=== PATIENT | female | born 1970 | race Caucasian/White ===

== ENCOUNTER 2017-11-30 11:29 | Outpatient (CLI) | payer MEDICAID ==
[~2017-11-30 11:29] MED LIST: APIX5TAB PO; DIVA500T PO; FLUO20CA12 PO; FURO20TA PO; LEVO.15 PO; LISI-519 PO; METO1TAB42 PO; RISP2TAB37 PO; RISP3 PO; VITA500012 PO
--- NOTE | 2017-11-30 12:13 | GIPROC ---
[facility] [address] [facility]. [facility], [address] EGD PROCEDURE REPORT EXAM DATE: 11/30/2017 PATIENT NAME: Mary Kate Zamora MR #: [id number] BIRTHDATE: 1970 ATTENDING: Sang Sheth MD ORDER #: [id number] CLINICAL CODER: Eduardo Otto and Priscila Mcdaniels STATUS: outpatient INDICATIONS: The patient is a 47 yr old female here for an EGD due to iron deficiency anemia and dysphagia PROCEDURE PERFORMED: EGD w/ biopsy MEDICATIONS: None and Per Anesthesia. TOPICAL ANESTHETIC: CONSENT: The patient understands the risks and benefits of the procedure and understands that these risks include, but are not limited to: sedation, allergic reaction, infection, perforation and/or bleeding. Alternative means of evaluation and treatment include, among others: physical exam, x-rays, and/or surgical intervention. The patient elects to proceed with this endoscopic procedure. medical equipment was checked for proper function. Hand hygiene and appropriate measures for infection prevention was taken. After the risks, benefits and alternatives of the procedure were thoroughly explained, Informed consent was verified, confirmed and timeout was successfully executed by the treatment team. The patient was anesthetized with topical anesthesia and the EC-3490Li (Pedi C) endoscope was introduced through the mouth and advanced to the second portion of the duodenum. Retroflexed views revealed no abnormalities The gastroscope was then slowly withdrawn and removed. ESOPHAGUS: There was LA Class B esophagitis noted. A biopsy was performed using cold forceps. Sample sent for histology. STOMACH: There was erythematous moderate gastritis in the gastric antrum. A biopsy was performed using cold forceps. Sample sent for histology. DUODENUM: The duodenal mucosa appeared normal in the bulb and second portion of the duodenum. ADVERSE EVENTS: There were no complications. IMPRESSIONS: 1. There was LA Class B esophagitis noted; biopsy was performed 2. There was erythematous gastritis in the gastric antrum; biopsy was performed 3. Normal duodenal mucosa in the bulb and second portion of the duodenum 4. Retroflexed views revealed no abnormalities RECOMMENDATIONS: 1. Await biopsy results. Biopsy results will not be ready for 7-10 days. If you don't hear from us in two weeks, call our office for biopsy results. 2. Anti-reflux regimen 3. Continue PPI PATIENT CONDITION: stable DISPOSITION: Inpatient REPEAT EXAM: Return 1 year EGD pending biopsy results Sang Sheth MD eSigned: Sang Sheth MD 11/30/2017 12:12 PM cc: PATIENT NAME: Mary Kate Zamora MR#: [id number]
--- NOTE | 2017-11-30 12:14 | GIPROC ---
[facility] [address] [facility]. [facility], [address] COLONOSCOPY PROCEDURE REPORT EXAM DATE: 11/30/2017 PATIENT NAME: Mary Kate Zamora MR #: [id number] BIRTHDATE: 1970 ENDOSCOPIST: Sang Sheth MD ORDER #: [id number] AGRICULTURE SCIENTIST: Eduardo Otto and Priscila Mcdaniels STATUS: outpatient INDICATIONS: The patient is a 47 yr old female here for a colonoscopy due to iron deficiency anemia PROCEDURE PERFORMED: Colonoscopy, diagnostic MEDICATIONS: None and Per Anesthesia. PREP QUALITY: The Bergland Bowel Prep Score was Right colon 2, Mid colon 3, and Left colon 3. Total = 8. PREP TYPE:GoLytely ESTIMATED BLOOD LOSS: None CONSENT: The patient understands the risks and benefits of the procedure and understands that these risks include, but are not limited to: sedation, allergic reaction, infection, perforation and/or bleeding. Alternative means of evaluation and treatment include, among others: physical exam, x-rays, and/or surgical intervention. The patient elects to proceed with this endoscopic procedure. medical equipment was checked for proper function. Hand hygiene and appropriate measures for infection prevention was taken. After the risks, benefits and alternatives of the procedure were thoroughly explained, Informed consent was verified, confirmed and timeout was successfully executed by the treatment team. A digital exam revealed external hemorrhoids The Pentax EC-3490Li endoscope was introduced through the anus and advanced to the terminal ileum which was intubated for a short distance. The instrument was then slowly withdrawn as the colon was fully examined. COLON FINDINGS: The colonic mucosa appeared normal. Retroflexed views revealed internal hemorrhoids and Retroflexed views revealed small internal hemorrhoids The scope was then completely withdrawn from the patient and the procedure terminated. ADVERSE EVENTS: There were no complications. IMPRESSIONS: 1. The colonic mucosa appeared normal 2. Retroflexed views revealed internal hemorrhoids 3. Retroflexed views revealed small internal hemorrhoids 4. Revealed external hemorrhoids RECOMMENDATIONS: 1. Continue surveillance 2. Yearly hemoccult RECALL: Return 10 years Colonoscopy Sang Sheth MD eSigned: Sang Sheth MD 11/30/2017 12:14 PM cc:
[2017-11-30 12:19] VITALS: TEMP 97.5
[2017-11-30 12:36] VITALS: BP 130/69; PULSE 63; RESP 18; O2SAT 99
[2017-11-30] MEDS ORDERED: ZINC OXIDE 40% OINT 60 GM TUBE TOPICAL PRN (13:30)
== END 2017-11-30 12:54 ==
LOC: HEND 11:29 → MERGE 11:29 → HEND 12:54
PROVIDERS: ATTEND Internal Medicine Gastroenterology
DX: D64.9 Anemia, unspecified (principal); K29.50 Unspecified chronic gastritis without bleeding; K64.4 Residual hemorrhoidal skin tags; K64.8 Other hemorrhoids; R19.8 Other specified symptoms and signs involving the digestive system and abdomen; I10 Essential (primary) hypertension; I25.10 Atherosclerotic heart disease of native coronary artery without angina pectoris
CPT/HCPCS: 88305; 88312

== ENCOUNTER 2017-11-30 12:48 | Inpatient (IN) | payer MEDICAID ==
--- NOTE | 2017-11-30 13:31 | HHI.PR ---
Subjective Remarks s/p EGD. comfortable with no distress. denies abdominal pain, nausea or vomiting. Objective Objective Remarks GENERAL: This is a well-nourished, well-developed patient, in no apparent distress. CARDIOVASCULAR: Regular rate and regular rhythm without murmurs, gallops, or rubs. RESPIRATORY: Clear to auscultation. Breath sounds equal bilaterally. No wheezes , rales, or rhonchi. GASTROINTESTINAL: Abdomen soft, non-tender, nondistended. Normal, active bowel sounds MUSCULOSKELETAL: Extremities without clubbing, cyanosis, or edema. NEURO: Alert & Oriented x4 to person, place, time, situation. Moves all ext x4 Procedures EGD/ colonoscopy A/P Assessment and Plan A/P - depression/ suicidal thoughts- management per psych. -CAD/endocarditis- s/p aortic valve repair; continue eliquis- verify the dosage of metoprolol and lisinopril and resume when verified. -anemia- due to iron deficiency- patient is on anticoagulation ( Hb; 12.5 ---> 10.5 since last month); monitor H/H- GI consulted and s/p EGD with esophagitis and gastritis and colonoscopy with internal and external hemorrhoids. -hypothyroidism; resume home meds Nelda Nguyen MD Nov 30, 2017 13:31
[2017-11-30] MEDS ORDERED: diphenhydrAMINE HCL 50 MG/ML VIAL IM PRN (14:45)
[2017-11-30] MEDS ORDERED: NICOTINE 21 MG/24 HR PATCH T-DERMAL PRN (14:45)
[2017-11-30] MEDS ORDERED: ALUMINUM/MAGNESIUM/SIMETH 30 ML CUP PO PRN (14:45)
[2017-11-30] MEDS ORDERED: MAGNESIUM HYDROXIDE SUSP 30 ML CUP PO PRN (14:45)
--- NOTE | 2017-11-30 14:54 | HHI.PYPN ---
Subjective Remarks Patient returning from GI procedure under new V number. See my H&P dated 11/29. Patient seen and examined. Chart reviewed. Case discussed with nursing staff. On my examination today, patient is awake and alert. She appears to be in no acute distress. She reports mild, improving deprecatory AH. No CAH. Denies SI/HI. She is in good spirits. She says that her plan is now to go stay with daughter. I noted in nursing notes that daughter was requesting a call, and I have asked patient to complete JD with nurse. Denies side effects from medications. Complains of some mild abdominal pain but otherwise has no physical complaints. Review of Systems Except as stated in HPI: all other systems reviewed are Neg Mental Status Examination Appearance: Other (in hospital attire. Well groomed.) Consciousness: Alert Orientation: x4 Motor Activity: Normal gait, Other (no motor abnormalities noted) Speech: Unremarkable Language: Adequate Fund of Knowledge: Adequate Attention and Concentration: Adequate Memory: Unremarkable Mood: Appropriate Affect: Appropriate Thought Process & Associations: Intact Thought Content: Appropriate Hallucination Type: Auditory (deprecatory) Delusion Type: None Suicidal Ideation: No Suicidal Plan: No Suicidal Intention: No Homicidal Ideation: No Homicidal Plan: No Homicidal Intention: No Insight: Fair Judgment: Adequate (fair) Results Labs Item Value Date Time Hemoglobin 11.2 GM/DL L 11/30/17 1100 Hematocrit 34.3 % L 11/30/17 1100 Iron Level 18 MCG/DL L 11/29/17 0943 Total Iron Binding Capacity 494 MCG/DL H 11/29/17 0943 Percent Iron Saturation 3.6 % L 11/29/17 0943 Ferritin 5 NG/ML L 11/29/17 0943 Thyroid Stimulating Hormone 3rd Gen 1.580 uIU/ML 11/29/17 0943 Vitals/IOs Vital Signs Label Value Date Time Patient Temperature 97.5 degrees F L 11/30/17 1219 Temperature Source Oral 11/30/17 1219 Pulse 63 11/30/17 1236 Respiratory Rate 18 bpm 11/30/17 1236 Blood Pressure Assessment 130/69 (89) 11/30/17 1236 Location R Arm Source Automatic Cuff Bedside Pulse Oximetry 99 % 11/30/17 1236 Assessment & Plan Problem List: (1) Schizoaffective disorder, bipolar type ICD Codes: F25.0 - Schizoaffective disorder, bipolar type Assessment & Plan Continue Risperdal 2mg qAM and 3mg qHS as ordered. Patient remains agreeable to CERRATO, and we could consider initiating such an agent tomorrow. Continue Depakote and Prozac as ordered. Plan to check Depakote and ammonia level over the weekend (inpatient or outpatient if discharged by that time). Hospitalist and GI input appreciated; defer to them for somatic complaints. Continue to monitor on the inpatient unit. Continue other medications and care as ordered. Call to daughter once JD has been obtained. Justification for Cont. Inpt. Planned medication changes. Resolving impairment in reality construction. Discharge Planning Pending stabilization Request HC Surrog/Guard Advoc?: No Missael Mart MD Nov 30, 2017 14:54
[2017-11-30 15:15] VITALS: BP 162/67; PULSE 75; RESP 18; TEMP 98; O2SAT 98
[2017-11-30 18:00] VITALS: BP 122/63; PULSE 78; RESP 18; TEMP 98.2; O2SAT 92
[2017-11-30 19:00] VITALS: BP 149/68; PULSE 75; RESP 18; TEMP 98.2
[2017-11-30] MEDS: ACETAMINOPHEN 325 MG TAB PO PRN (19:19)
[2017-11-30 20:20] VITALS: BP 146/70; PULSE 72; RESP 18
--- NOTE | 2017-11-30 20:40 | RADRPT ---
EXAM DATE/TIME: 11/30/2017 20:01 [facility] COMPARISON: No previous studies available for comparison. INDICATIONS : Sacral pain after fall. MEDICAL HISTORY : None. SURGICAL HISTORY : None. ENCOUNTER: Initial ACUITY: 1 day PAIN SCORE: 10/10 LOCATION: Bilateral buttock FINDINGS: Two-view examination of the sacrum and coccyx demonstrates no evidence of fracture or malalignment. The sacral ala and foramina appear symmetric and intact. The coccyx appears unremarkable. The preve rtebral soft tissues are within normal limits. CONCLUSION: 1. No acute findings. Tommy Harrington MD on November 30, 2017 at 20:38 Board Certified Radiologist. This report was verified electronically.
--- NOTE | 2017-11-30 20:40 | RADRPT ---
EXAM DATE/TIME: 11/30/2017 20:01 [facility] COMPARISON: No previous studies available for comparison. INDICATIONS : Lower back pain after fall. MEDICAL HISTORY : None. SURGICAL HISTORY : None. ENCOUNTER: Initial ACUITY: 1 day PAIN SCORE: 10/10 LOCATION: Bilateral lower back. FINDINGS: Two view examination was performed. There are five non-rib bearing vertebral bodies. The vertebral bodies are in normal alignment without evidence of subluxation or scoliosis. The disc spaces are bert ntained. The pedicles are intact. Bony mineralization is normal. No fracture is identified. CONCLUSION: 1. No acute findings. Minimal scoliosis. Grade 1 anterolisthesis at the lumbosacral junction. Tommy Harrington MD on November 30, 2017 at 20:36 Board Certified Radiologist. This report was verified electronically.
[2017-11-30] MEDS: risperiDONE 3 MG TAB PO SCH (20:50)
[2017-11-30] MEDS: DIVALPROEX DR 500 MG TABEC PO SCH (20:50)
[2017-11-30] MEDS: REMOVE OLD NICODERM (NICOTINE) PATCH T-DERMAL SCH (20:50)
[2017-11-30 21:30] VITALS: BP 133/62; PULSE 72; RESP 16; TEMP 97.9
[2017-11-30 22:44] VITALS: BP 132/60; PULSE 67; RESP 16; TEMP 98
[2017-12-01 02:35] VITALS: BP 125/60; PULSE 69; RESP 17; TEMP 98; O2SAT 95
[2017-12-01 05:28] VITALS: BP 123/58; PULSE 62; RESP 18; TEMP 98.3
[2017-12-01] MEDS: LEVOTHYROXINE SODIUM 150 MCG TAB PO SCH (06:00)
[2017-12-01] MEDS: FLUoxetine HCL 20 MG CAP PO SCH (09:00)
[2017-12-01] MEDS: PANTOPRAZOLE SOD 40 MG DELAYED RELEASE TAB PO SCH (09:00)
[2017-12-01] MEDS: risperiDONE 1 MG TAB PO SCH (09:00)
[2017-12-01] MEDS: DIVALPROEX DR 500 MG TABEC PO SCH ×2 (09:00→21:44)
--- NOTE | 2017-12-01 12:05 | HHI.PYPN ---
Subjective Remarks Patient seen and examined with nurse. Chart reviewed. Case discussed with nursing staff. I was apprised by the night nurse of patient's behaviors overnight as I was the MD public information director. Nurse overnight reported to me that patient reported 2 'falls' although it was not suspected that she had really fallen but rather that she had been feigning falls. I ordered patient placed on a 1:1 to try to minimize this behavior, and nurse reported to me that sitter observed patient lower herself to floor and subsequently claim yet another 'fall.' On my exam today, patient initially purports to have no recollection of behavior overnight but then seems to agree that it is in keeping with acting out behavior described by daughter. She denies SI/HI. Denies AVH. She is fairly childlike. Denies side effects from medications. Declines long-acting injectable. No physical complaints. Review of Systems ROS Limitations: Poor Historian Except as stated in HPI: all other systems reviewed are Neg Mental Status Examination Appearance: Well dressed/well groomed Consciousness: Alert Orientation: x4 Motor Activity: Normal gait, Other (no abnormal motor movements noted) Speech: Unremarkable Language: Adequate Fund of Knowledge: Adequate Attention and Concentration: Adequate Memory: Unremarkable Mood: Appropriate Affect: Other (childlike) Thought Process & Associations: Intact Thought Content: Appropriate Hallucination Type: None Delusion Type: None Suicidal Ideation: No Suicidal Plan: No Suicidal Intention: No Homicidal Ideation: No Homicidal Plan: No Homicidal Intention: No Insight: Fair Judgment: Adequate (fair at best) Results Labs Labs reviewed. No new labs. Last Impressions Sacrum and Coccyx X-Ray 11/30/17 0000 Signed Impressions: Service Date/Time: Thursday, November 30, 2017 20:01 - CONCLUSION: 1. No acute findings. Tommy Harrington MD Lumbar Spine X-Ray 11/30/17 0000 Signed Impressions: Service Date/Time: Thursday, November 30, 2017 20:01 - CONCLUSION: 1. No acute findings. Minimal scoliosis. Grade 1 anterolisthesis at the lumbosacral junction. Tommy Harrington MD Vitals/IOs Vital Signs Date Time Temp Pulse Resp B/P (MAP) Pulse Ox O2 Delivery O2 Flow Rate FiO2 12/01/17 05:28 98.3 62 18 123/58 (79) 12/01/17 02:35 95 Assessment & Plan Problem List: (1) Schizoaffective disorder, bipolar type ICD Codes: F25.0 - Schizoaffective disorder, bipolar type Assessment & Plan Continue current psychotropics as ordered. Patient declines medication change today. I will continue one-to-one to try to prevent acting out by feigning falls. Hospitalist input appreciated. Continue to monitor on the inpatient unit. Continue other medications and care as ordered. Justification for Cont. Inpt. Risk for decompensation in less restrictive environment. Discharge Planning Pending stabilization Request HC Surrog/Guard Advoc?: No Missael Mart MD Dec 01, 2017 12:05
--- NOTE | 2017-12-01 14:39 | HHI.GIFU ---
Subjective Remarks Pt stood up when I entered room, in no apparent distress. She states she wants to go home. Denies any GI complaints at this time, had a BM today, states normal. Objective Vitals I&O Vital Signs Date Time Temp Pulse Resp B/P (MAP) Pulse Ox O2 Delivery O2 Flow Rate FiO2 12/01/17 05:28 98.3 62 18 123/58 (79) 12/01/17 02:35 98.0 69 17 125/60 (81) 95 11/30/17 22:44 98.0 67 16 132/60 (84) 11/30/17 21:30 97.9 72 16 133/62 (85) 11/30/17 20:20 72 18 146/70 (95) 11/30/17 19:00 98.2 75 18 149/68 (95) 11/30/17 18:00 98.2 78 18 122/63 (82) 92 11/30/17 15:15 98.0 75 18 162/67 (98) 98 I/O 11/30/17 11/30/17 11/30/17 12/01/17 12/01/17 12/01/17 07:00 15:00 23:00 07:00 15:00 23:00 Intake Total 240 ml Balance 240 ml Intake Oral 240 ml Imaging Last Impressions Sacrum and Coccyx X-Ray 11/30/17 0000 Signed Impressions: Service Date/Time: Thursday, November 30, 2017 20:01 - CONCLUSION: 1. No acute findings. Tommy Harrington MD Lumbar Spine X-Ray 11/30/17 0000 Signed Impressions: Service Date/Time: Thursday, November 30, 2017 20:01 - CONCLUSION: 1. No acute findings. Minimal scoliosis. Grade 1 anterolisthesis at the lumbosacral junction. Tommy Harrington MD Physical Exam HEENT: Normocephalic; atraumatic CHEST: Even/unlabored ABDOMEN: Soft, nondistended, nontender; bowel sounds active EXTREMITIES: No clubbing, cyanosis, or edema. SKIN: Normal; no rash; no jaundice. SUBSTATION TECHNICIAN: No focal deficits; alert and oriented times three. Assessment and Plan Plan - Anemia, microcytic, hypochromic. Iron-18 TIBC-494 % sat-3.6 Ferritin-5. Pt reports history of iron deficiency anemia, stopped taking the iron supplements because they caused constipation. No obvious GIB. GI symptoms include constipation and acid reflux, takes medication for acid reflux at home, but she is unsure of the name. Denies ever having EGD. Last colonoscopy 3 years ago, states normal exam. Denies NSAIDS. ETOH and smokes when she can afford it. Of note, attending planning on continuing Eliquis that pt is on S/P aortic valve replacement three years ago, will hold until after procedures tomorrow (12/01) S/P EGD and colonoscopy yesterday. Findings: Colon- mucosa appeared normal, internal hemorrhoids, external hemorrhoids. Recommendations for repeat exam in 10 years. EGD--> Class A esophagitis, erythematous gastritis, normal duodenum. Recommendations for PPI and repeat exam in one year. H/H currently stable 11.2/34.3. GI will sign off, please reconsult as needed. DC home with Protonix. May restart Eliquis from GI standpoint. Pt has been seen and examined by myself and Dr. Bridges and this note is written on his behalf Oneyda Thurston Dec 01, 2017 14:39
--- NOTE | 2017-12-01 17:25 | HHI.PR ---
Subjective Remarks Follow up for anemia, esophagitis/gastritis, hemorrhoids. The patient is s/p EGD /colonoscopy yesterday 11/30 showing esophagitis, erythematous gastritis, internal/external hemorrhoids. She reports some irritation at the rectum with bowel movement but denies any hematochezia/melena. Denies any abdominal pain, nausea, or vomiting. She is tolerating oral intake. RN reports patient with behavior issues overnight, reportedly intentionally throwing herself on the floor after not receiving pain medications. The patient denies any musculoskeletal complaints following the fall. The patient is now with 1 to 1 sitter, resting in bed, no acute issues. The patient has no other medical complaints at this time. Objective Vitals Vital Signs Date Time Temp Pulse Resp B/P (MAP) Pulse Ox O2 Delivery O2 Flow Rate FiO2 12/01/17 05:28 98.3 62 18 123/58 (79) 12/01/17 02:35 98.0 69 17 125/60 (81) 95 11/30/17 22:44 98.0 67 16 132/60 (84) 11/30/17 21:30 97.9 72 16 133/62 (85) 11/30/17 20:20 72 18 146/70 (95) 11/30/17 19:00 98.2 75 18 149/68 (95) 11/30/17 18:00 98.2 78 18 122/63 (82) 92 I/O 11/30/17 11/30/17 11/30/17 12/01/17 12/01/17 12/01/17 07:00 15:00 23:00 07:00 15:00 23:00 Intake Total 240 ml Balance 240 ml Intake Oral 240 ml Imaging Last Impressions Sacrum and Coccyx X-Ray 11/30/17 0000 Signed Impressions: Service Date/Time: Thursday, November 30, 2017 20:01 - CONCLUSION: 1. No acute findings. Tommy Harrington MD Lumbar Spine X-Ray 11/30/17 0000 Signed Impressions: Service Date/Time: Thursday, November 30, 2017 20:01 - CONCLUSION: 1. No acute findings. Minimal scoliosis. Grade 1 anterolisthesis at the lumbosacral junction. Tommy Harrington MD Objective Remarks GENERAL: Well-nourished, well-developed middle aged female patient in NAD. Resting in bed. Seen with sitter at bedside. SKIN: Warm and dry. No rash. HEENT: Normocephalic. Atraumatic.Pupils equal and round. Mucous membranes pink and moist. NECK: Supple. Trachea midline. CARDIOVASCULAR: Regular rate and rhythm. S1, S2 noted. Loud mechanical murmur noted. RESPIRATORY: No accessory muscle use. Clear to auscultation. Breath sounds equal bilaterally. GASTROINTESTINAL: Abdomen soft, non-tender, nondistended. Normoactive bowel sounds x4. MUSCULOSKELETAL: No obvious deformities. Extremities without clubbing, cyanosis , or edema. NEUROLOGICAL: Awake and alert. No obvious cranial nerve deficits. Motor grossly within normal limits. Normal speech. Procedures EGD/colonoscopy 11/30 showing esophagitis, erythematous gastritis, internal/ external hemorrhoids. Medications and IVs Current Medications Medications (Trade) Dose Ordered Sig/Sean Route Start Time Stop Time Status Last Admin (Protonix) 40 mg DAILY PO 12/01/17 09:00 12/01/17 09:00 (Benadryl) 50 mg Q6H PRN PO 11/30/17 14:45 (Benadryl Inj) 50 mg Q6H PRN IM 11/30/17 14:45 (Tylenol) 650 mg Q4H PRN PO 11/30/17 14:45 11/30/17 19:19 (Milk Of Magnesia Liq) 30 ml DAILY PRN PO 11/30/17 14:45 (Mag-Al Plus Susp Liq) 30 ml Q6H PRN PO 11/30/17 14:45 (Habitrol 21 Mg Patch.24 Hr) 1 patch DAILY PRN T-DERMAL 11/30/17 14:45 (risperDAL) 2 mg DAILY PO 12/01/17 09:00 12/01/17 09:00 (risperDAL) 3 mg HS PO 11/30/17 21:00 11/30/17 20:50 (Depakote Dr) 500 mg BID PO 11/30/17 21:00 12/01/17 09:00 (PROzac) 20 mg DAILY PO 12/01/17 09:00 12/01/17 09:00 (Synthroid) 150 mcg DAILY@0600 PO 12/01/17 06:00 12/01/17 06:00 Miscellaneous Information 1 HS T-DERMAL 11/30/17 21:00 (Desitin 40% Oint) 1 applic UNSCH PRN TOPICAL 11/30/17 15:15 A/P Problem List: (1) History of aortic valve repair ICD Code: Z98.890 - Other specified postprocedural states; Z86.79 - Personal history of other diseases of the circulatory system (2) Schizoaffective disorder, bipolar type ICD Code: F25.0 - Schizoaffective disorder, bipolar type Assessment and Plan 47-year-old female with history of iron deficiency anemia, endocarditis s/p aortic valve repair, hypothyroidism, bipolar disorder, schizophrenia, PTSD, admitted to inpatient psych voluntarily due to auditory hallucinations and noncompliance with psychiatric medications. Medical team consulted for anemia and medical management. Hallucinations/depression/suicidal ideations -continue management per psychiatry CAD/Endocarditis s/p aortic valve repair: At this time, patient reporting mechanical valve however reportedly only on Eliquis? which is not approved for anticoagulation with mechanical valves. Discussed with radiologist, unable to differentiate type of valve on CXR. - Obtain records MARYBEL - start on full strength Lovenox injections until verified type of valve - start home meds when med rec updated Iron Deficiency Anemia: patient is also on anticoagulation ( Hb; 12.5 ---> 10.5 since last month) -GI consulted, s/p EGD 11/30 with esophagitis/gastritis and colonoscopy with internal and external hemorrhoids. -Recommended PPI -patient tolerating oral intake Hypothyroidism: chronic - resume home meds once updated DVT Prophylaxis: Lovenox sq Ruby Hubbard PA-C Dec 01, 2017 5:25 pm
[2017-12-01] MEDS: diphenhydrAMINE HCL 50 MG CAP PO PRN (18:03)
[2017-12-01 18:39] VITALS: BP 122/67; PULSE 76; RESP 16; TEMP 97.9; O2SAT 98
[2017-12-01] MEDS: REMOVE OLD NICODERM (NICOTINE) PATCH T-DERMAL SCH (21:00)
[2017-12-01] MEDS: risperiDONE 3 MG TAB PO SCH (21:44)
[2017-12-01] MEDS: ZINC OXIDE 40% OINT 60 GM TUBE TOPICAL PRN (22:22)
[2017-12-01] MEDS: ENOXAPARIN SODIUM 80 MG/0.8 ML SYRINGE SQ SCH (22:24)
[2017-12-01] MEDS: ACETAMINOPHEN 325 MG TAB PO PRN (22:39)
[2017-12-02] MEDS: ENOXAPARIN SODIUM 80 MG/0.8 ML SYRINGE SQ SCH (05:19)
[2017-12-02 06:09] VITALS: BP 101/58; PULSE 60; RESP 16; TEMP 97.3; O2SAT 96
[2017-12-02] MEDS: LEVOTHYROXINE SODIUM 150 MCG TAB PO SCH (06:33)
[2017-12-02] MEDS: DIVALPROEX DR 500 MG TABEC PO SCH ×3 (09:00→21:16)
[2017-12-02] MEDS: risperiDONE 1 MG TAB PO SCH (09:15)
[2017-12-02] MEDS: PANTOPRAZOLE SOD 40 MG DELAYED RELEASE TAB PO SCH (09:15)
[2017-12-02] MEDS: FLUoxetine HCL 20 MG CAP PO SCH (09:15)
[2017-12-02] MEDS: ENOXAPARIN SODIUM 100 MG/ML SYRINGE SQ SCH ×2 (11:00→17:54)
--- NOTE | 2017-12-02 11:05 | HHI.PYPN ---
Subjective Remarks Patient seen and examined with nurse. Chart reviewed. Case discussed with nursing staff. No behavioral issues noted overnight. No further purposeful falls. Case discussed in treatment team, and occupational therapist notes that the patient has been behaving fairly appropriately in groups. Patient remains on one-to-one due to purposeful falls night before last. On my exam, patient remains somewhat childlike. She is requesting discharge from the hospital today. I discuss that we first need to de-escalate her level of obs without evidence of behavioral disturbance before discharge could be considered, at least through the weekend; she expresses understanding. She denies any SI/HI or AVH today. Denies side effects from medications. No physical complaints. I have recommended CERRATO antipsychotic again today, but patient refuses this. Review of Systems ROS Limitations: Poor Historian Except as stated in HPI: all other systems reviewed are Neg Mental Status Examination Appearance: Well dressed/well groomed Consciousness: Alert Orientation: x4 Motor Activity: Normal gait, Other (no motoric abnormalities noted) Speech: Unremarkable Language: Adequate Fund of Knowledge: Adequate Attention and Concentration: Adequate Memory: Unremarkable Mood: Appropriate Affect: Other (remains a little childlike) Thought Process & Associations: Intact Thought Content: Appropriate Hallucination Type: None Delusion Type: None Suicidal Ideation: No Suicidal Plan: No Suicidal Intention: No Homicidal Ideation: No Homicidal Plan: No Homicidal Intention: No Insight: Fair Judgment: Adequate (fair at best) Results Labs Labs reviewed. Echocardiogram results reviewed. Vitals/IOs Vital Signs Date Time Temp Pulse Resp B/P (MAP) Pulse Ox O2 Delivery O2 Flow Rate FiO2 12/02/17 06:09 97.3 60 16 101/58 (72) 96 Assessment & Plan Problem List: (1) Schizoaffective disorder, bipolar type ICD Codes: F25.0 - Schizoaffective disorder, bipolar type Assessment & Plan Continue Risperdal, Depakote and Prozac as ordered. Patient is declining long- acting injectable antipsychotic. Plan to check a Depakote and ammonia level Tuesday morning. Discontinue one-to-one level of observation and monitor on the inpatient unit. Vrt Mechanic input noted and appreciated. Continue other medications and care as ordered. Justification for Cont. Inpt. Monitoring for impairment in safety. Risk for decompensation in less restrictive environment. Discharge Planning Possible Tuesday discharge so long as patient remains in behavioral control over the weekend. Request HC Surrog/Guard Advoc?: No Missael Mart MD Dec 02, 2017 11:05
--- NOTE | 2017-12-02 13:43 | HHI.PR ---
Subjective Remarks Follow-up anticoagulation. Patient not a good historian. Reports she underwent 3 valve surgeries in [facility] in [place] 2 years ago and was discharged without anticoagulation. She is not certain if she underwent valve replacement or repair. In spring, she underwent cardiac catheterization because of arrhythmia and [facility] and was placed on Eliquis since then. Doesn't recall being on Coumadin with PT/INR monitoring. Objective Vitals Vital Signs Date Time Temp Pulse Resp B/P (MAP) Pulse Ox O2 Delivery O2 Flow Rate FiO2 12/02/17 06:09 97.3 60 16 101/58 (72) 96 12/01/17 18:39 97.9 76 16 122/67 (85) 98 I/O 12/01/17 12/01/17 12/01/17 12/02/17 12/02/17 12/02/17 07:00 15:00 23:00 07:00 15:00 23:00 Intake Total 240 ml 240 ml Balance 240 ml 240 ml Intake Oral 240 ml 240 ml Imaging Last Impressions Sacrum and Coccyx X-Ray 11/30/17 0000 Signed Impressions: Service Date/Time: Thursday, November 30, 2017 20:01 - CONCLUSION: 1. No acute findings. Tommy Harrington MD Lumbar Spine X-Ray 11/30/17 0000 Signed Impressions: Service Date/Time: Thursday, November 30, 2017 20:01 - CONCLUSION: 1. No acute findings. Minimal scoliosis. Grade 1 anterolisthesis at the lumbosacral junction. Tommy Harrington MD Objective Remarks GENERAL: Well-nourished, well-developed middle aged female patient in [facility]. Resting in bed. Seen with sitter at bedside. SKIN: Warm and dry. No rash. CARDIOVASCULAR: Regular rate and rhythm. S1, S2 noted. Loud systolic murmur noted. Metallic click RESPIRATORY: No accessory muscle use. Clear to auscultation. Breath sounds equal bilaterally. GASTROINTESTINAL: Abdomen soft, non-tender, nondistended. Normoactive bowel sounds x4. MUSCULOSKELETAL: No obvious deformities. Extremities without clubbing, cyanosis , or edema. NEUROLOGICAL: Awake and alert. No obvious cranial nerve deficits. Motor grossly within normal limits. Normal speech. Procedures EGD/colonoscopy 11/30 showing esophagitis, erythematous gastritis, internal/ external hemorrhoids. A/P Problem List: (1) History of aortic valve repair ICD Code: Z98.890 - Other specified postprocedural states; Z86.79 - Personal history of other diseases of the circulatory system (2) Schizoaffective disorder, bipolar type ICD Code: F25.0 - Schizoaffective disorder, bipolar type Assessment and Plan 47-year-old female with history of iron deficiency anemia, endocarditis s/p aortic valve repair, hypothyroidism, bipolar disorder, schizophrenia, PTSD, admitted to inpatient psych voluntarily due to auditory hallucinations and noncompliance with psychiatric medications. Medical team consulted for anemia and medical management. Hallucinations/depression/suicidal ideations -continue management per psychiatry CAD/Endocarditis s/p aortic valve repair: At this time, patient reporting mechanical valve however reportedly only on Eliquis? which is not approved for anticoagulation with mechanical valves. Discussed with radiologist, unable to differentiate type of valve on CXR. - Obtain records MARYBEL - start on full strength Lovenox injections until verified type of valve - start home meds when med rec updated Iron Deficiency Anemia: patient is also on anticoagulation ( Hb; 12.5 ---> 10.5 since last month) -GI consulted, s/p EGD 11/30 with esophagitis/gastritis and colonoscopy with internal and external hemorrhoids. -Recommended PPI -patient tolerating oral intake -add Fe Hypothyroidism: chronic - resume home meds once updated DVT Prophylaxis: Lovenox sq Nehemiah Quick MD Dec 02, 2017 13:43
--- NOTE | 2017-12-02 14:28 | ECHRPT ---
Indication: endocarditis CONCLUSIONS The left ventricular systolic function is normal with an estimated ejection fraction in the range of 60-65%. Mild mitral valve regurgitation. Mobile vegetation 0.9 x 0.8cm seen on anterior MV. Appears to have bioprosthetic AVR, gradients appear most likely normal for valve. There is mild tricuspid valve regurgitation. BP: / HR: Rhythm: MEASUREMENTS (Male / Female) Normal Values Technical Quality:Technically difficult study 2D ECHO LV Diastolic Diameter PLAX 5.7 cm 4.2 - 5.9 / 3.9 - 5.3 cm LV Systolic Diameter PLAX 3.7 cm IVS Diastolic Thickness 1.1 cm 0.6 - 1.0 / 0.6 - 0.9 cm LVPW Diastolic Thickness 1.0 cm 0.6 - 1.0 / 0.6 - 0.9 cm LV Relative Wall Thickness 0.4 RV Internal Dim ED PLAX 2.3 cm LVOT Diameter 2.2 cm M-MODE Aortic Root Diameter MM 2.6 cm LA Systolic Diameter MM 4.8 cm LA Ao Ratio MM 1.8 DOPPLER AV Peak Velocity 258.0 cm/s AV Peak Gradient 26.6 mmHg AV Mean Gradient 16.0 mmHg AV Velocity Time Integral 56.2 cm LVOT Peak Velocity 113.0 cm/s LVOT Peak Gradient 5.1 mmHg LVOT Velocity Time Integral 21.7 cm AV Area Cont Eq vti 1.5 cm AV Area Cont Eq pk 1.7 cm LV E' Lateral Velocity 11.0 cm/s LV E' Septal Velocity 8.7 cm/s TR Peak Velocity 200.0 cm/s TR Peak Gradient 16.0 mmHg Right Atrial Pressure 10.0 mmHg Pulmonary Artery Systolic Pressu 26.0 mmHg Right Ventricular Systolic Press 26.0 mmHg FINDINGS LEFT VENTRICLE Normal left ventricular size. The left ventricular systolic function is normal with an estimated ejection fraction in the range of 60-65%. RIGHT VENTRICLE Normal right ventricular size and systolic function. LEFT ATRIUM The left atrial size is mildly dilated. RIGHT ATRIUM The right atrial size is normal. ATRIAL SEPTUM Normal atrial septal thickness. AORTA The aortic root and proximal ascending aorta are normal in size on limited imaging. MITRAL VALVE Structurally normal mitral valve. Mild mitral valve regurgitation. Mobile vegetation 0.9 x 0.8cm seen on anterior MV AORTIC VALVE Appears to have bioprosthetic AVR No aortic valve regurgitation. Gradients appear most likely normal for valve TRICUSPID VALVE Structurally normal tricuspid valve. There is mild tricuspid valve regurgitation. The estimated pulmonary arterial pressure is 26 mmHg. PULMONARY VALVE No pulmonary valve regurgitation or stenosis. VESSELS The inferior vena cava is normal in size. PERICARDIUM No pericardial effusion. Sudhakar Garcia DO (Electronically Signed) Final Date:02 December 2017 14:27
--- NOTE | 2017-12-02 15:08 | PD.TTN ---
Patient Problems 1. Discharge planning 2. Medication compliance 3. Knowledge deficit 4. Lack of coping skills Progress Toward Goals Provider Present: Dr. Mariajose Mart Provider Input: Doctor discharge 1 to 1, started long acting injectable, pt childlike, meets criteria Psychiatric Counselors Present: Tay Chaparro Jr., [facility] Psych Therapist Input: none Group Spec/RT/OT/SANTILLAN Input: not attending group. Tay Chaparro Jr, PATIENT SUPPORT ASSISTANT Dec 02, 2017 15:07
[2017-12-02 18:00] VITALS: BP 138/65; PULSE 88; RESP 17; TEMP 98.1; O2SAT 100
[2017-12-02] MEDS: ZINC OXIDE 40% OINT 60 GM TUBE TOPICAL PRN (19:38)
[2017-12-02] MEDS: ACETAMINOPHEN 325 MG TAB PO PRN (19:57)
[2017-12-02] MEDS: REMOVE OLD NICODERM (NICOTINE) PATCH T-DERMAL SCH (21:00)
[2017-12-02] MEDS: diphenhydrAMINE HCL 50 MG CAP PO PRN (21:16)
[2017-12-02] MEDS: risperiDONE 3 MG TAB PO SCH (21:16)
[2017-12-02 21:50] VITALS: BP 137/59; PULSE 59; RESP 16; TEMP 98.1; O2SAT 99
[2017-12-03 05:40] VITALS: BP 137/59; PULSE 59; RESP 16; TEMP 98.1; O2SAT 99
[2017-12-03] MEDS: LEVOTHYROXINE SODIUM 150 MCG TAB PO SCH (05:52)
[2017-12-03] MEDS: FLUoxetine HCL 20 MG CAP PO SCH (08:45)
[2017-12-03] MEDS: DIVALPROEX DR 500 MG TABEC PO SCH ×2 (08:45→21:12)
[2017-12-03] MEDS: risperiDONE 1 MG TAB PO SCH (08:45)
[2017-12-03] MEDS: APIXABAN 5 MG TABLET PO SCH ×2 (08:46→21:12)
[2017-12-03] MEDS: FERROUS SULFATE 325 MG (65 MG ELEMENTAL IRON) TAB PO SCH (08:46)
[2017-12-03] MEDS: PANTOPRAZOLE SOD 40 MG DELAYED RELEASE TAB PO SCH (08:46)
--- NOTE | 2017-12-03 11:29 | HHI.PYPN ---
Subjective Remarks Pt seen and discussed with staff. She has been compliant with treatment and medications. No medication side effects. RN states that pt initially refused to be on CERRATO but is now contemplating it. She is denying SI today. No falls or agitation. Mental Status Examination Appearance: Well dressed/well groomed Consciousness: Alert Orientation: x4 Motor Activity: Normal gait, Other (no motoric abnormalities noted) Speech: Unremarkable Language: Adequate Fund of Knowledge: Adequate Attention and Concentration: Adequate Memory: Unremarkable Mood: Appropriate Affect: Other (remains a little childlike) Thought Process & Associations: Intact Thought Content: Appropriate Hallucination Type: None Delusion Type: None Suicidal Ideation: No Suicidal Plan: No Suicidal Intention: No Homicidal Ideation: No Homicidal Plan: No Homicidal Intention: No Insight: Fair Judgment: Adequate (fair at best) Results Vitals/IOs Vital Signs Date Time Temp Pulse Resp B/P (MAP) Pulse Ox O2 Delivery O2 Flow Rate FiO2 12/03/17 05:40 98.1 59 16 137/59 (85) 99 Assessment & Plan Problem List: (1) Schizoaffective disorder, bipolar type ICD Codes: F25.0 - Schizoaffective disorder, bipolar type Assessment & Plan Continue current tx plan Estimated LOS: days Justification for Cont. Inpt. risk of decompensation Request HC Surrog/Guard Advoc?: Lena Thomas MD Dec 03, 2017 11:29
--- NOTE | 2017-12-03 13:07 | HHI.PR ---
Subjective Remarks Follow-up anticoagulation. Tolerating Lovenox. Echocardiogram results discussed with the patient she has bioprosthetic aortic valve and does not need anticoagulation. She is on Eliquis for arrhythmia dw RN Objective Vitals Vital Signs Date Time Temp Pulse Resp B/P (MAP) Pulse Ox O2 Delivery O2 Flow Rate FiO2 12/03/17 05:40 98.1 59 16 137/59 (85) 99 12/02/17 21:50 98.1 59 16 137/59 (85) 99 12/02/17 18:00 98.1 88 17 138/65 (89) 100 Objective Remarks GENERAL: Well-nourished, well-developed middle aged female patient in [facility]. Resting in bed. Seen with sitter at bedside. SKIN: Warm and dry. No rash. CARDIOVASCULAR: Regular rate and rhythm. S1, S2 noted. Loud systolic murmur noted. RESPIRATORY: No accessory muscle use. Clear to auscultation. Breath sounds equal bilaterally. GASTROINTESTINAL: Abdomen soft, non-tender, nondistended. Normoactive bowel sounds x4. MUSCULOSKELETAL: No obvious deformities. Extremities without clubbing, cyanosis , or edema. NEUROLOGICAL: Awake and alert. No obvious cranial nerve deficits. Motor grossly within normal limits. Normal speech. Procedures EGD/colonoscopy 11/30 showing esophagitis, erythematous gastritis, internal/ external hemorrhoids. A/P Problem List: (1) History of aortic valve repair ICD Code: Z98.890 - Other specified postprocedural states; Z86.79 - Personal history of other diseases of the circulatory system (2) Schizoaffective disorder, bipolar type ICD Code: F25.0 - Schizoaffective disorder, bipolar type Assessment and Plan 47-year-old female with history of iron deficiency anemia, endocarditis s/p aortic valve repair, hypothyroidism, bipolar disorder, schizophrenia, PTSD, admitted to inpatient psych voluntarily due to auditory hallucinations and noncompliance with psychiatric medications. Medical team consulted for anemia and medical management. Hallucinations/depression/suicidal ideations -continue management per psychiatry CAD/Endocarditis s/p aortic valve replacement: Echocardiogram reveals the ff: left ventricular systolic function is normal with an estimated ejection fraction in the range of 60-65%. Mild mitral valve regurgitation. Mobile vegetation 0.9 x 0.8cm seen on anterior MV (patient claims she had endocarditis in 3 valve status post treatment) to. Appears to have bioprosthetic AVR, gradients appear most likely normal for valve. There is mild tricuspid valve regurgitation. Switch to Eliquis. Check blood cx and consider ID consult. Clinically stable with no fever, chills and leukocytosis Iron Deficiency Anemia: patient is also on anticoagulation ( Hb; 12.5 ---> 10.5 since last month) -GI consulted, s/p EGD 11/30 with esophagitis/gastritis and colonoscopy with internal and external hemorrhoids. -Recommended PPI -patient tolerating oral intake -Fe Hypothyroidism: chronic - resume home meds once updated DVT Prophylaxis: Nehemiah Eugeen MD Dec 03, 2017 13:07
[2017-12-03 16:49] VITALS: BP 131/98; PULSE 70; RESP 16; TEMP 98; O2SAT 98
[2017-12-03] MEDS: REMOVE OLD NICODERM (NICOTINE) PATCH T-DERMAL SCH (21:00)
[2017-12-03] MEDS: risperiDONE 3 MG TAB PO SCH (21:12)
[2017-12-03] MEDS: diphenhydrAMINE HCL 50 MG CAP PO PRN (21:12)
[2017-12-03 22:25] LABS: AUTOMATED NEUTROPHIL # 2.1 TH/MM3 (1.8-7.7); BASOPHIL % 0.6 % (0.0-2.0); EOSINOPHIL # 0.2 TH/MM3 (0-0.4); EOSINOPHIL % 3.7 % (0.0-4.0); HEMATOCRIT 30.9 % (35.0-46.0); HEMOGLOBIN 10.1 GM/DL (11.6-15.3); LYMPH % 34.1 % (9.0-44.0); LYMPHOCYTE # 1.4 TH/MM3 (1.0-4.8); MEAN CELL VOLUME 75.4 FL (80.0-100.0); MEAN CORPUSCULAR HEMOGLOBIN 24.7 PG (27.0-34.0); MEAN CORPUSCULAR HGB CONC 32.7 % (32.0-36.0); MEAN PLATELET VOLUME 8.9 FL (7.0-11.0); MONO % 10.4 % (0.0-8.0); MONOCYTE # 0.4 TH/MM3 (0-0.9); NEUT % 51.2 % (16.0-70.0); PLATELET COUNT 194 TH/MM3 (150-450); RED CELL DISTRIBUTION WIDTH 16.6 % (11.6-17.2); WHITE BLOOD COUNT 4.2 TH/MM3 (4.0-11.0)
[2017-12-03 22:39] LABS: CALCIUM 8.5 MG/DL (8.5-10.1); CREATININE 0.82 MG/DL (0.50-1.00)
[2017-12-04] MEDS: LEVOTHYROXINE SODIUM 150 MCG TAB PO SCH (06:19)
[2017-12-04 06:24] VITALS: BP 135/67; PULSE 62; RESP 18; TEMP 98.2; O2SAT 93
[2017-12-04] MEDS: DIVALPROEX DR 500 MG TABEC PO SCH ×2 (08:16→20:29)
[2017-12-04] MEDS: APIXABAN 5 MG TABLET PO SCH ×2 (08:16→20:29)
[2017-12-04] MEDS: FERROUS SULFATE 325 MG (65 MG ELEMENTAL IRON) TAB PO SCH (08:17)
[2017-12-04] MEDS: FLUoxetine HCL 20 MG CAP PO SCH (08:17)
[2017-12-04] MEDS: risperiDONE 1 MG TAB PO SCH (08:17)
[2017-12-04] MEDS: PANTOPRAZOLE SOD 40 MG DELAYED RELEASE TAB PO SCH (08:17)
--- NOTE | 2017-12-04 11:52 | MB ---
cc: SHARMAINE QUICK MD, FRANKLYN F. MD DATE OF CONSULTATION: 12/04/[address] Quick. REASON FOR CONSULTATION: Mitral valve vegetation, history of endocarditis in three valves, status post x-ray. HISTORY OF PRESENT ILLNESS This is a 47-year-old white female who was admitted to the psychiatric unit here at [facility]. She was admitted to [facility] for schizoaffective disorder, bipolar type. During this hospitalization the patient was evaluated by medicine, hospitalist service and was noted to have three valve surgeries in the past including valve replacement of the aortic valve for endocarditis. The patient is a poor historian and information about her past medical history is not available to me at this time. She was able to give me information upon interview. This consult was requested because of a result of a transthoracic echocardiogram which found the patient to have a lesion on her mitral valve which is a mobile vegetation approximately 0.9 x 0.8 cm seen on the an anterior leaflet of the valve. The patient reports that she had surgery with replacement of her aortic valve 20 years ago when her child was born and she developed endocarditis after the . She states that she had to have two or three other surgery to repair a valve of the heart but she does not recall what valve it was. She states that she did not have any infection at those times. She reports that her last surgery on the heart was four years ago. She has not had any antibiotics, intravenous, in four years. She states that she recalls having antibiotics for six weeks when the mitral valve was replaced 20 years ago. The patient has no fever. She denies any recent fevers. She denies chills, chest pain, shortness of breath, and has not noticed any skin lesions. We have no information of prior echocardiogram to compare. The patient is awake, alert and she feels well. Her white count is normal. Blood cultures were taken yesterday evening and results are pending. PAST MEDICAL HISTORY 1. Aortic valve replacement for endocarditis. 2. Hypothyroidism. 3. Depression. 4. Tubal ligation. ALLERGIES VANCOMYCIN AND LATEX. MEDICATIONS 1. Eliquis. 2. Ferrous sulfate. 3. Protonix. 4. Risperdal. 5. Prozac. 6. Synthroid. 7. Depakote. 8. Nicotine patch. SOCIAL HISTORY The patient smokes a pack of cigarettes a day. She denies alcohol use. She denies drug use. She denies IV drugs. FAMILY HISTORY: Noncontributory. REVIEW OF SYSTEMS General: No fever or chills. HEAD, EYES, EARS, NOSE, AND THROAT: No visual blurring or difficulty with vision. No soreness of the throat or difficulty swallowing. Neck: No neck pain or swelling. Cardiovascular: No palpitations. No chest pain. Respiratory: No cough or shortness of breath. Gastrointestinal: Denies nausea or vomiting, abdominal pain or diarrhea. Genitourinary: Denies urgency, frequency, dysuria. Musculoskeletal: Denies muscle aches or pain. Integumentry: Denies skin rash or itching. Hematopoetic: Denies easy bruising or bleeding. Psychiatric: Noted to have depressed mood. Neurologic: Denies headache or difficulty with ambulation or dizziness. PHYSICAL EXAMINATION This is a well-developed female who is in no acute distress. She is awake and alert and oriented. Vital signs: Include temperature 98.2, BP 135/67, respirations 1862. Heart rate 62. HEENT: Head is atraumatic. Extraocular movements grossly intact, pupils reactive to light without icterus. Oropharynx moist mucosa. No visible lesions. Neck: Supple without adenopathy. Lungs: Clear breath sounds bilateral. Heart: 2/6 systolic murmur at the left sternal border and upper right sternal border. Abdomen: Bowel sounds present, soft, nontender. No palpable mass. No palpable splenomegaly. Rectal: Not performed. Extremities: No clubbing, cyanosis or edema. No splinter hemorrhage. No Osler nodes or Janeway lesions at the hands or feet. Skin: No rash. Neurologic: Alert and oriented. No gross focal findings. Psych: The patient is calm and cooperative. LABORATORY DATA WBC 4.2, platelets 194, hemoglobin 10.1, differential 51% neutrophils, 34% lymphocytes, 10% monocytes, creatinine 0.82, BUN 18, sodium 139. IMPRESSION Patient with history of aortic valve replacement 20 years ago and subsequent heart valve repair, now noted to have a mitral valve vegetation but without any evidence suggesting endocarditis. The patient denies fever and does not have any features suggesting endocarditis. We do not have recent echocardiogram information to compare with this current echocardiogram to determine whether this is a longstanding vegetation or not. Based on Rusk criteria for endocarditis, essentially the only criteria she meets is having had this vegetation seen on the MARCIO. RECOMMENDATIONS: I recommend that blood cultures which were obtained yesterday be followed to completion and also obtain some medical records from the prior treatment given to the patient for endocarditis and heart valve procedures. If the blood cultures are negative, I do not see the need for treatment for endocarditis but she needs to be followed up and have repeat echo at some point in the future. If she develops any episode of fever in the future, she will need to be evaluated and additional workup done and possibly initiation of antibiotic treatment for endocarditis. Please call when the finalized blood cultures are available for further information on this patient. Darrion Rogers MD FD/ZELALEM /10:52 AM /11:29 AM
[2017-12-04] MEDS: diphenhydrAMINE HCL 50 MG CAP PO PRN ×2 (13:12→21:30)
--- NOTE | 2017-12-04 14:25 | HHI.PYPN ---
Subjective Remarks Pt seen and discussed with staff. She has been anxious and worried today, requiring lots of assurance. She took benadryl for anxiety which helped calm. No aggression or agitation. She did do hygiene activities and has been out in milieu. pacing. Mental Status Examination Appearance: Well dressed/well groomed Consciousness: Alert Orientation: x4 Motor Activity: Normal gait, Other (no motoric abnormalities noted) Speech: Unremarkable Language: Adequate Fund of Knowledge: Adequate Attention and Concentration: Adequate Memory: Unremarkable Mood: Appropriate Affect: Other (remains a little childlike) Thought Process & Associations: Intact Thought Content: Appropriate Hallucination Type: None Delusion Type: None Suicidal Ideation: No Suicidal Plan: No Suicidal Intention: No Homicidal Ideation: No Homicidal Plan: No Homicidal Intention: No Insight: Fair Judgment: Adequate (fair at best) Results Labs Test 12/03/17 21:22 White Blood Count 4.2 TH/MM3 Red Blood Count 4.10 MIL/MM3 Hemoglobin 10.1 GM/DL Hematocrit 30.9 % Mean Corpuscular Volume 75.4 FL Mean Corpuscular Hemoglobin 24.7 PG Mean Corpuscular Hemoglobin Concent 32.7 % Red Cell Distribution Width 16.6 % Platelet Count 194 TH/MM3 Mean Platelet Volume 8.9 FL Neutrophils (%) (Auto) 51.2 % Lymphocytes (%) (Auto) 34.1 % Monocytes (%) (Auto) 10.4 % Eosinophils (%) (Auto) 3.7 % Basophils (%) (Auto) 0.6 % Neutrophils # (Auto) 2.1 TH/MM3 Lymphocytes # (Auto) 1.4 TH/MM3 Monocytes # (Auto) 0.4 TH/MM3 Eosinophils # (Auto) 0.2 TH/MM3 Basophils # (Auto) 0.0 TH/MM3 CBC Comment DIFF FINAL Differential Comment Blood Urea Nitrogen 18 MG/DL Creatinine 0.82 MG/DL Random Glucose 98 MG/DL Calcium Level 8.5 MG/DL Sodium Level 139 MEQ/L Potassium Level 3.8 MEQ/L Chloride Level 105 MEQ/L Carbon Dioxide Level 27.0 MEQ/L Anion Gap 7 MEQ/L Estimat Glomerular Filtration Rate 75 ML/MIN Date/Time Source Procedure Growth Status 12/03/17 21:22 Blood Peripheral Aerobic Blood Culture - Preliminary NO GROWTH IN 1 DAY Resulted 12/03/17 21:22 Blood Peripheral Anaerobic Blood Culture - Preliminary NO GROWTH IN 1 DAY Resulted Vitals/IOs Vital Signs Date Time Temp Pulse Resp B/P (MAP) Pulse Ox O2 Delivery O2 Flow Rate FiO2 12/04/17 06:24 98.2 62 18 135/67 (89) 93 Assessment & Plan Problem List: (1) Schizoaffective disorder, bipolar type ICD Codes: F25.0 - Schizoaffective disorder, bipolar type Assessment & Plan Continue current tx plan. Estimated LOS: days Justification for Cont. Inpt. risk of decompensation Request HC Surrog/Guard Advoc?: Lena Thomas MD Dec 04, 2017 14:25
[2017-12-04 18:15] VITALS: BP 119/57; PULSE 65; RESP 17; TEMP 97.9; O2SAT 94
[2017-12-04] MEDS: risperiDONE 3 MG TAB PO SCH (20:29)
[2017-12-04] MEDS: REMOVE OLD NICODERM (NICOTINE) PATCH T-DERMAL SCH (20:30)
[2017-12-04] MEDS: ACETAMINOPHEN 325 MG TAB PO PRN (23:39)
[2017-12-05] MEDS: LEVOTHYROXINE SODIUM 150 MCG TAB PO SCH (05:17)
[2017-12-05 05:36] VITALS: BP 146/68; PULSE 67; RESP 18; TEMP 97.3; O2SAT 100
[2017-12-05] MEDS: FLUoxetine HCL 20 MG CAP PO SCH (08:36)
[2017-12-05] MEDS: APIXABAN 5 MG TABLET PO SCH ×2 (08:36→20:49)
[2017-12-05] MEDS: FERROUS SULFATE 325 MG (65 MG ELEMENTAL IRON) TAB PO SCH (08:36)
[2017-12-05] MEDS: risperiDONE 1 MG TAB PO SCH (08:36)
[2017-12-05] MEDS: PANTOPRAZOLE SOD 40 MG DELAYED RELEASE TAB PO SCH (08:36)
[2017-12-05] MEDS ORDERED: risperiDONE EXT REL INJ 25 MG/2 ML VIAL IM ONE (10:30)
--- NOTE | 2017-12-05 10:30 | HHI.DS ---
Psychiatry Discharge Summary Inpatient Psychiatric care?: Yes Advance Directive: No Reason Not Provided: Due to Patient Condition Mental Health AdvanceDirective: No Health Care Proxy: No Admission Admission Date Nov 30, 2017 at 13:18 Admission Diagnosis: (1) Schizoaffective disorder, bipolar type ICD Code: F25.0 - Schizoaffective disorder, bipolar type Brief History Please see H&P dated 11/29. 47 y/o CF with a history of psychotic illness who presented voluntarily to ED with complaints of SI. Tobacco Use In Past 30 Days: No Tobacco Past 30 Days Alcohol Use: Never Hospital Course Patient was admitted to [facility], inpatient psychiatric unit. A general medical consultation was obtained and the patient was medically cleared prior to discharge. GI followed up in patient's case. Infectious disease was consulted. Appropriate precautions were in place throughout patient's hospital stay. Patient was seen and examined on the unit by psychiatry and also visited by counselor. Psychotropic medications were adjusted. Patient was started on long-acting injectable Risperdal Consta to improve adherence with medications outside of the hospital setting. There was no evidence of any suicidality or homicidality on the inpatient unit. The patient's behavior improved with the benefit of further treatment. Patient was medication compliant. On the day of discharge: Patient seen and examined with nurse. Chart reviewed. Case discussed with nursing staff. No behavioral issues overnight. Sleep was somewhat poor per nursing report. Case discussed with counselor who had spoken with patient's daughter before the weekend; daughter is agreeable to accepting the patient home per counselor. On my examination today, the patient is requesting discharge from the inpatient psychiatric unit today. She denies any suicidal or homicidal ideation, intent or plan on direct questioning and contracts for safety. I can elicit no depressive or hypomanic/manic symptoms. She says that her sleep difficulties overnight were because she is excited about returning home. She denies any audiovisual hallucinations. I can elicit no delusional material. There is no evidence of any impairment in reality construction presently. She denies side effects from medications. We review the R/B/A of long-acting injectable antipsychotic medications, and the patient is agreeable to initiating Risperdal Consta today. I have discussed the need for temporary oral supplementation with Risperdal PO following initial administration of Risperdal Consta. No physical complaints. I have discussed with patient need to follow-up on outstanding blood cultures, and she understands this. Suicide and violence risk assessment on day of discharge both suggest lower imminent risk, and the patient's level of function is adequate for outpatient care. The patient does not meet criteria for involuntary psychiatric hospitalization. She is requesting discharge from the inpatient psychiatric unit today, and I have no basis to retain her over her objection. She will be discharged home today with psychiatric follow-up as arranged by counselor. Patient is also to follow-up with primary care. I have counseled the patient regarding warning signs for need to return to the psychiatric emergency room as part of a general safety plan. Results Blood Pressure 146 / 68 Vital Signs Date Time Temp Pulse Resp B/P (MAP) Pulse Ox O2 Delivery O2 Flow Rate FiO2 12/05/17 05:36 97.3 67 18 146/68 (94) 100 Laboratory Tests Test 12/03/17 21:22 Hemoglobin 10.1 GM/DL (11.6-15.3) Hematocrit 30.9 % (35.0-46.0) Mean Corpuscular Volume 75.4 FL (80.0-100.0) Mean Corpuscular Hemoglobin 24.7 PG (27.0-34.0) Monocytes (%) (Auto) 10.4 % (0.0-8.0) Estimat Glomerular Filtration Rate 75 ML/MIN (>89) Summary of Major Lab Results Depakote level within the therapeutic range. Ammonia level somewhat elevated, although patient has no signs or symptoms of hyperammonemic encephalopathy. I have out of an abundance of caution started the patient on Carnitor for the management of this hyperammonemia, and a follow-up ammonia level has been ordered by the hospitalist. Summary of Procedures None done Imaging Last Impressions Sacrum and Coccyx X-Ray 11/30/17 0000 Signed Impressions: Service Date/Time: Thursday, November 30, 2017 20:01 - CONCLUSION: 1. No acute findings. Tommy Harrington MD Lumbar Spine X-Ray 11/30/17 0000 Signed Impressions: Service Date/Time: Thursday, November 30, 2017 20:01 - CONCLUSION: 1. No acute findings. Minimal scoliosis. Grade 1 anterolisthesis at the lumbosacral junction. Tommy Harrington MD Pending results at discharge: Yes Medications # of Antipsychotic meds at D/C: 1 Approp Antipsych med options 1 - Minimum of three failed multiple trials of monotherapy. 2 - Documented plan to taper to monotherapy due to previous use of multiple meds OR cross-taper in progress at D/C. 3 - Documentation of augmentation of Clozapine. 4 - Justification other than those listed in allowable values 1-3, document here : Discharge Discharge Date: Dec 05, 2017 Discharge Diagnosis: (1) Schizoaffective disorder, bipolar type Diagnosis: Principal (stabilized) ICD Code: F25.0 - Schizoaffective disorder, bipolar type Pt Condition on Discharge: Stable Discharge Disposition: Discharge Home Discharge Instructions Diet Instructions: Heart Healthy Diet Activities you can perform: Weight Bearing as Eran Scheduled Appointment: as per counselor's notes New Orders: AMMONIA - 2-3 Days New Medications: Levocarnitine (Metabolic Modif) (Carnitor) 330 Mg Tab 330 MG PO TID for Hyperammonemia for 15 Days, TAB 1 Refill Risperidone Inj (Risperdal Consta Inj) 25 Mg/2 Ml Inj 25 MG IM Q14D for Mental Health, #2 VIAL 0 Refills This dose of Risperdal Consta is due on 12/19/2017. Apixaban (Eliquis) 5 Mg Tab 5 MG PO BID for Blood Clot Prevention, #[address] (Divalproex DR) 500 Mg Tabdr 500 MG PO BID for Mental Health for 15 Days, #30 TAB 1 Refill Ferrous Sulfate (Ferosul) 325 Mg (65 Mg Iron) Tablet 325 MG PO DAILY for Iron supplement for 15 Days, TAB 1 Refill Fluoxetine (Fluoxetine) 20 Mg Capsule 20 MG PO DAILY for Mental Health for 15 Days, #15 CAP 1 Refill Levothyroxine (Synthroid) 150 Mcg Tab 150 MCG PO DAILY@0600 for Thyroid for 15 Days, TAB 1 Refill Pantoprazole (Pantoprazole) 40 Mg Tab 40 MG PO DAILY for Health for 15 Days, #15 TAB 1 Refill Risperidone (Risperdal) 1 Mg Tab 1 MG PO DIRECTED for Mental Health for 21 Days, TAB 0 Refills 2mg PO qAM and 3mg PO qHS. Continue oral Risperdal for 3 weeks and then stop. Be sure to get your next Risperdal Consta injection. Discharge Time > 30 minutes Mental Status Examination Appearance: Appropriate, Well dressed/well groomed Consciousness: Alert Orientation: x4 (no evidence of delirium) Motor Activity: Normal gait, Other (no abnormal motor movements noted) Speech: Unremarkable Language: Adequate Fund of Knowledge: Adequate Attention and Concentration: Adequate Memory: Unremarkable Mood: Appropriate Affect: Appropriate (somewhat childlike) Thought Process & Associations: Intact Thought Content: Appropriate Hallucination Type: None Delusion Type: None Suicidal Ideation: No Suicidal Plan: No Suicidal Intention: No Homicidal Ideation: No Homicidal Plan: No Homicidal Intention: No Insight: Fair Judgment: Adequate (fair at best) Discharge/Advance Care Plan Health Problems: (1) Schizoaffective disorder, bipolar type Goals to promote your health * To prevent worsening of your condition and complications * To maintain your health at the optimal level Directions to meet your goals Take your medications as prescribed Follow your dietary instruction Follow activity as directed Keep your appointments as scheduled Take your immunizations and boosters as scheduled If your symptoms worsen call your PCP, if no PCP go to Urgent Care Center or Emergency Room For 30/05 questions related to your inpatient stay or results of tests pending at discharge, please contact Dr. Missael Mart at Smoking is Dangerous to Your Health. Avoid second hand smoking Missael Mart MD Dec 05, 2017 10:30
[2017-12-05] MEDS: DIVALPROEX DR 500 MG TABEC PO SCH ×2 (12:00→20:49)
--- NOTE | 2017-12-05 13:13 | HHI.PR ---
Subjective Remarks Follow-up visit for endocarditis s/p aortic valve replacement on anticoagulation , iron deficiency anemia, and hypothyroidism. Patient seen and examined in her room with nurse at bedside, has cleared for discharge from psychiatrists, pending medical clearance for discharge. Patient denies any fevers, chills, nausea, vomiting, diarrhea, headache, chest pains, shortness of breath or cough. She reports that she will be moving and will have to find a new PCP. Objective Vitals Vital Signs Date Time Temp Pulse Resp B/P (MAP) Pulse Ox O2 Delivery O2 Flow Rate FiO2 12/05/17 05:36 97.3 67 18 146/68 (94) 100 12/04/17 18:15 97.9 65 17 119/57 (77) 94 Result Diagram: 12/03/17212112/03/172121 Imaging Last Impressions Sacrum and Coccyx X-Ray 11/30/17 0000 Signed Impressions: Service Date/Time: Thursday, November 30, 2017 20:01 - CONCLUSION: 1. No acute findings. Tommy Harrington MD Lumbar Spine X-Ray 11/30/17 0000 Signed Impressions: Service Date/Time: Thursday, November 30, 2017 20:01 - CONCLUSION: 1. No acute findings. Minimal scoliosis. Grade 1 anterolisthesis at the lumbosacral junction. Tommy Harrington MD Objective Remarks GENERAL: Well-nourished, well-developed middle aged female patient in [facility]. SKIN: Warm and dry. No rash. HEENT: Normocephalic. Atraumatic.Pupils equal and round. Mucous membranes pink and moist. NECK: Supple. Trachea midline. CARDIOVASCULAR: Regular rate and rhythm. S1, S2 noted. Loud mechanical murmur noted. RESPIRATORY: No accessory muscle use. Clear to auscultation. Breath sounds equal bilaterally. GASTROINTESTINAL: Abdomen soft, non-tender, nondistended. Normoactive bowel sounds x4. MUSCULOSKELETAL: No obvious deformities. Extremities without clubbing, cyanosis , or edema. NEUROLOGICAL: Awake and alert. No obvious cranial nerve deficits. Motor grossly within normal limits. Normal speech. Procedures EGD/colonoscopy 11/30 showing esophagitis, erythematous gastritis, internal/ external hemorrhoids. A/P Problem List: (1) History of aortic valve repair ICD Code: Z98.890 - Other specified postprocedural states; Z86.79 - Personal history of other diseases of the circulatory system (2) Schizoaffective disorder, bipolar type ICD Code: F25.0 - Schizoaffective disorder, bipolar type Assessment and Plan 47-year-old female with history of iron deficiency anemia, endocarditis s/p aortic valve repair, hypothyroidism, bipolar disorder, schizophrenia, PTSD, admitted to inpatient psych voluntarily due to auditory hallucinations and noncompliance with psychiatric medications. Medical team consulted for anemia and medical management. Hallucinations/depression/suicidal ideations - Management per psychiatry - Discharged pending medical clearance. CAD/Endocarditis s/p aortic valve replacement: Echocardiogram reveals the ff: left ventricular systolic function is normal with an estimated ejection fraction in the range of 60-65%. Mild mitral valve regurgitation. Mobile vegetation 0.9 x 0.8cm seen on anterior MV (patient claims she had endocarditis in 3 valve status post treatment) to. Appears to have bioprosthetic AVR, gradients appear most likely normal for valve. There is mild tricuspid valve regurgitation. Switch to Eliquis. - Blood cultures obtained with no growth after 2 days - ID consulted, recommends following cultures until completion. If blood cultures are negative no need for treatment of endocarditis. - Patient will need follow-up echo in the future especially if she develops any episodes of fevers. - Patient was made aware and encouraged to obtained medical records to take with her once she establishes with new PCP. - Nurse will also obtain reliable phone number where we can reach patient in case cultures to return positive. - Patient is aware and has verbalized understanding. Iron Deficiency Anemia: patient is also on anticoagulation ( Hb; 12.5 ---> 10.5 since last month) -GI consulted, s/p EGD 11/30 with esophagitis/gastritis and colonoscopy with internal and external hemorrhoids. -Recommended PPI -patient tolerating oral intake, no reports of bleeding. -Continue oral ferrous sulfate. Hypothyroidism: chronic -Continue Synthroid 150 MCG's Elevated ammonia - Ammonia level checked today 99 - Possibly related to Depakote dR - Advise recheck with her PCP in the next several days - Patient is awake alert and oriented DVT Prophylaxis: Karel Leiva Dec 05, 2017 13:13
[2017-12-05] MEDS ORDERED: APIX5TAB PO (13:15)
[2017-12-05] MEDS ORDERED: PANT40TA3 PO (14:39)
[2017-12-05] MEDS ORDERED: RISP1 PO (14:39)
[2017-12-05] MEDS ORDERED: CARN330T PO (14:39)
[2017-12-05] MEDS ORDERED: FLUO20CA12 PO (14:39)
[2017-12-05] MEDS ORDERED: RISP25P IM (14:39)
[2017-12-05] MEDS ORDERED: FERR325T20 PO (14:39)
[2017-12-05] MEDS ORDERED: LEVO.15 PO (14:39)
[2017-12-05] MEDS ORDERED: DIVA500T PO (14:39)
[2017-12-05] MEDS: diphenhydrAMINE HCL 50 MG CAP PO PRN (20:48)
[2017-12-05] MEDS: REMOVE OLD NICODERM (NICOTINE) PATCH T-DERMAL SCH (20:49)
[2017-12-05] MEDS: risperiDONE 3 MG TAB PO SCH (20:49)
[2017-12-06 05:59] VITALS: BP 147/67; PULSE 70; RESP 16; TEMP 98.5; O2SAT 98
[2017-12-06] MEDS: LEVOTHYROXINE SODIUM 150 MCG TAB PO SCH (06:00)
[2017-12-06] MEDS: DIVALPROEX DR 500 MG TABEC PO SCH ×2 (08:08→20:29)
[2017-12-06] MEDS: APIXABAN 5 MG TABLET PO SCH ×2 (08:09→20:29)
[2017-12-06] MEDS: risperiDONE 1 MG TAB PO SCH (08:09)
[2017-12-06] MEDS: FERROUS SULFATE 325 MG (65 MG ELEMENTAL IRON) TAB PO SCH (08:09)
[2017-12-06] MEDS: PANTOPRAZOLE SOD 40 MG DELAYED RELEASE TAB PO SCH (08:09)
[2017-12-06] MEDS: FLUoxetine HCL 20 MG CAP PO SCH (08:09)
[2017-12-06] MEDS: levOCARNitine 10% ORAL SOLN 118 ML BTL PO SCH ×3 (09:00→17:36)
--- NOTE | 2017-12-06 12:06 | HHI.PYPN ---
Subjective Remarks Patient seen and examined with nurse. Chart reviewed. Case discussed with nursing staff. Discharge had to be held yesterday as patient's daughter did not answer phone and there was therefore no safe discharge in place. Patient has completed a right of release. On my examination this morning, patient denies any SI/HI/AVH. She is in good spirits this morning. We discuss discharge difficulties, and patient agrees she would not fare well if discharged e.g. to a senior care. Given that we have had no success reaching daughter, we discuss [facility] placement as a backup option. Patient is agreeable to placement and is agreeable to rescinding ROR to facilitate placement. No side effects from medications. She does complain of some lower abdominal pain, requesting opiate pain medications. She is moving her bowels well. No blood in stool. No associated symptoms. Review of Systems Except as stated in HPI: all other systems reviewed are Neg Mental Status Examination Appearance: Appropriate, Well dressed/well groomed Consciousness: Alert Orientation: x4 Motor Activity: Normal gait, Other (no motor abnormalities noted) Speech: Unremarkable Language: Adequate Fund of Knowledge: Adequate Attention and Concentration: Adequate Memory: Unremarkable Mood: Appropriate Affect: Appropriate (remains a little bit childlike) Thought Process & Associations: Intact Thought Content: Appropriate Hallucination Type: None Delusion Type: None Suicidal Ideation: No Suicidal Plan: No Suicidal Intention: No Homicidal Ideation: No Homicidal Plan: No Homicidal Intention: No Insight: Fair Judgment: Adequate (fair at best) Results Labs Date/Time Source Procedure Growth Status 12/03/17 21:22 Blood Peripheral Aerobic Blood Culture - Preliminary NO GROWTH IN 3 DAYS Resulted 12/03/17 21:22 Blood Peripheral Anaerobic Blood Culture - Preliminary NO GROWTH IN 3 DAYS Resulted Labs reviewed. Blood cultures no growth 3 days. Vitals/IOs Vital Signs Date Time Temp Pulse Resp B/P (MAP) Pulse Ox O2 Delivery O2 Flow Rate FiO2 12/06/17 05:59 98.5 70 16 147/67 (93) 98 Assessment & Plan Problem List: (1) Schizoaffective disorder, bipolar type ICD Codes: F25.0 - Schizoaffective disorder, bipolar type Assessment & Plan Continue oral Risperdal supplementation of Risperdal Consta. Continue other psychotropics as ordered. Continue to monitor on inpatient unit. Consult hospitalist for c/o abdominal pain. Check a UA. Continue other meds and care as ordered. Patient rescinded right of release at 11:08am. Justification for Cont. Inpt. Risk for decompensation in less restrictive environment Discharge Planning Counselor to work on placement. Request HC Surrog/Guard Advoc?: No Missael Mart MD Dec 06, 2017 12:06
--- NOTE | 2017-12-06 14:12 | HHI.PR ---
Subjective Remarks Follow-up visit for endocarditis s/p aortic valve replacement on anticoagulation , iron deficiency anemia, and hypothyroidism. Patient seen and examined. Patient complaining of dysuria and lower abdominal pain. She reports normal BM yesterday. She denies any fever or chills. She denies any nausea or vomiting. LMP was one month ago. Objective Vitals Vital Signs Date Time Temp Pulse Resp B/P (MAP) Pulse Ox O2 Delivery O2 Flow Rate FiO2 12/06/17 05:59 98.5 70 16 147/67 (93 98 Result Diagram: 12/03/17212112/03/172121 Imaging Last Impressions Sacrum and Coccyx X-Ray 11/30/17 0000 Signed Impressions: Service Date/Time: Thursday, November 30, 2017 20:01 - CONCLUSION: 1. No acute findings. Tommy Harrington MD Lumbar Spine X-Ray 11/30/17 0000 Signed Impressions: Service Date/Time: Thursday, November 30, 2017 20:01 - CONCLUSION: 1. No acute findings. Minimal scoliosis. Grade 1 anterolisthesis at the lumbosacral junction. Tommy Harrington MD Objective Remarks GENERAL: Well-nourished, well-developed middle aged female patient in [facility]. Awake and alert. Appears comfortable. SKIN: Warm and dry. No rash. HEENT: Normocephalic. Atraumatic. EOMI. Mucous membranes pink and moist. NECK: Supple. Trachea midline. CARDIOVASCULAR: Regular rate and rhythm. S1, S2 noted. Loud mechanical murmur noted. RESPIRATORY: Nonlabored. Clear to auscultation. Breath sounds equal bilaterally. GASTROINTESTINAL: Abdomen soft, nondistended. (+)mild diffuse tenderness to palpation. Normoactive bowel sounds x4. MUSCULOSKELETAL: No obvious deformities. Extremities without clubbing, cyanosis , or edema. NEUROLOGICAL: Awake and alert. No obvious cranial nerve deficits. Motor grossly within normal limits. Normal speech. PSYCHIATRIC: Flat affect. Dysthymic mood. Procedures EGD/colonoscopy 11/30 showing esophagitis, erythematous gastritis, internal/ external hemorrhoids. Medications and IVs Current Medications Medications (Trade) Dose Ordered Sig/Sean Route Start Time Stop Time Status Last Admin (Protonix) 40 mg DAILY PO 12/01/17 09:00 12/06/17 08:09 (Benadryl) 50 mg Q6H PRN PO 11/30/17 14:45 12/05/17 20:48 (Benadryl Inj) 50 mg Q6H PRN IM 11/30/17 14:45 (Tylenol) 650 mg Q4H PRN PO 11/30/17 14:45 12/04/17 23:39 (Milk Of Magnesia Liq) 30 ml DAILY PRN PO 11/30/17 14:45 (Mag-Al Plus Susp Liq) 30 ml Q6H PRN PO 11/30/17 14:45 (Habitrol 21 Mg Patch.24 Hr) 1 patch DAILY PRN T-DERMAL 11/30/17 14:45 (risperDAL) 2 mg DAILY PO 12/01/17 09:00 12/06/17 08:09 (risperDAL) 3 mg HS PO 11/30/17 21:00 12/05/17 20:49 (Depakote Dr) 500 mg BID PO 11/30/17 21:00 12/06/17 08:08 (PROzac) 20 mg DAILY PO 12/01/17 09:00 12/06/17 08:09 (Synthroid) 150 mcg DAILY@0600 PO 12/01/17 06:00 12/06/17 06:00 Miscellaneous Information 1 HS T-DERMAL 11/30/17 21:00 (Desitin 40% Oint) 1 applic UNSCH PRN TOPICAL 11/30/17 15:15 12/02/17 19:38 (Ferrous Sulfate) 325 mg DAILY PO 12/03/17 09:00 12/06/17 08:09 (Eliquis) 5 mg BID PO 12/03/17 09:00 12/06/17 08:09 (Carnitor 10% Liq) 3 ml TID PO 12/06/17 09:00 A/P Problem List: (1) History of aortic valve repair ICD Code: Z98.890 - Other specified postprocedural states; Z86.79 - Personal history of other diseases of the circulatory system (2) Schizoaffective disorder, bipolar type ICD Code: F25.0 - Schizoaffective disorder, bipolar type Assessment and Plan 47-year-old female with history of iron deficiency anemia, endocarditis s/p aortic valve repair, hypothyroidism, bipolar disorder, schizophrenia, PTSD, admitted to inpatient psych voluntarily due to auditory hallucinations and noncompliance with psychiatric medications. Medical team consulted for anemia and medical management. Hallucinations/depression/suicidal ideations - Management per psychiatry Abdominal pain Dysuria LMP one month ago Patient denies any constipation - possible UTI - UA ordered - obtain beta HCG level. If negative, may order KUB for further evaluation CAD/Endocarditis s/p aortic valve replacement: Echocardiogram reveals the ff: left ventricular systolic function is normal with an estimated ejection fraction in the range of 60-65%. Mild mitral valve regurgitation. Mobile vegetation 0.9 x 0.8cm seen on anterior MV (patient claims she had endocarditis in 3 valve status post treatment) to. Appears to have bioprosthetic AVR, gradients appear most likely normal for valve. There is mild tricuspid valve regurgitation. - Continue on Eliquis. - Blood cultures obtained with no growth after 3 days - ID consulted, recommends following cultures until completion. If blood cultures are negative no need for treatment of endocarditis. - Patient will need follow-up echo in the future especially if she develops any episodes of fevers. - Patient was made aware and encouraged to obtained medical records to take with her once she establishes with new PCP. - Nurse will also obtain reliable phone number where we can reach patient in case cultures to return positive. - Patient is aware and has verbalized understanding. Iron Deficiency Anemia: patient is also on anticoagulation ( Hb; 12.5 ---> 10.5 since last month) - GI consulted, s/p EGD 11/30 with esophagitis/gastritis and colonoscopy with internal and external hemorrhoids. - Recommended PPI - patient tolerating oral intake, no reports of bleeding. - Continue oral ferrous sulfate. Hypothyroidism: chronic - Continue Synthroid 150mcg daily - TSH 11/28/17 WNL Elevated ammonia - Ammonia level 99 - Possibly related to Depakote. Started on Carnitor by primary team. - Advise recheck with her PCP in the next several days - repeat ammonia level if any change in mentation DVT Prophylaxis: Dianna Soliman Dec 06, 2017 14:12
[2017-12-06] MEDS: ACETAMINOPHEN 325 MG TAB PO PRN (17:36)
[2017-12-06 18:00] VITALS: BP 131/62; PULSE 66; RESP 16; TEMP 97.4; O2SAT 98
[2017-12-06 19:56] LABS: BILIRUBIN, URINE NEG (NEG); BLOOD, URINE LARGE (NEG); GLUCOSE,URINE NEG (NEG); KETONE, URINE NEG (NEG); MUCUS URINE FEW /lpf (OCC); NITRITE,URINE NEG (NEG); PH, URINE 7.5 (5.0-8.5); SQUAMOUS EPITHELIAL CELL URINE 6 /hpf (0-5); URINE COLOR YELLOW (YELLW/STRAW); URINE LEUKOCYTE ESTERASE NEG (NEG)
[2017-12-06] MEDS: diphenhydrAMINE HCL 50 MG CAP PO PRN (20:29)
[2017-12-06] MEDS: risperiDONE 3 MG TAB PO SCH (20:29)
[2017-12-06] MEDS: REMOVE OLD NICODERM (NICOTINE) PATCH T-DERMAL SCH (20:30)
[2017-12-07] MEDS: LEVOTHYROXINE SODIUM 150 MCG TAB PO SCH (05:49)
[2017-12-07 06:00] VITALS: BP 117/56; PULSE 65; RESP 16; TEMP 98.1; O2SAT 96
[2017-12-07] MEDS: risperiDONE 1 MG TAB PO SCH (08:30)
[2017-12-07] MEDS: levOCARNitine 10% ORAL SOLN 118 ML BTL PO SCH ×2 (08:30→13:00)
[2017-12-07] MEDS: APIXABAN 5 MG TABLET PO SCH (08:30)
[2017-12-07] MEDS: FLUoxetine HCL 20 MG CAP PO SCH (08:30)
[2017-12-07] MEDS: PANTOPRAZOLE SOD 40 MG DELAYED RELEASE TAB PO SCH (08:30)
[2017-12-07] MEDS: DIVALPROEX DR 500 MG TABEC PO SCH (08:31)
[2017-12-07] MEDS: FERROUS SULFATE 325 MG (65 MG ELEMENTAL IRON) TAB PO SCH (08:31)
[2017-12-07] MEDS ORDERED: IBUPROFEN 800 MG TAB PO PRN (09:00)
--- NOTE | 2017-12-07 13:05 | HHI.PYPN ---
Subjective Remarks Patient seen and examined with nurse. Chart reviewed. Case discussed with nursing staff. No behavioral issues overnight. Case discussed with counselor. Patient's daughter was apparently hospitalized with flu and this is why she was unable to take calls regarding patient's discharge. Daughter is now back in the home, counselor tells me, and she wishes to have the patient return home with her. On my examination today, the patient is requesting discharge to daughter's home. She denies any suicidal or homicidal ideation, intent or plan on direct questioning and contracts for safety. She denies any audiovisual hallucinations. There is no delusional material. I can elicit no mood symptoms. She denies any side effects from medications. She is agreeable to outpatient psychiatric follow-up. She has no physical complaints presently. Review of Systems Except as stated in HPI: all other systems reviewed are Neg Mental Status Examination Appearance: Appropriate, Well dressed/well groomed Consciousness: Alert Orientation: x4 Motor Activity: Normal gait, Other (no abnormal motor movements noted) Speech: Unremarkable Language: Adequate Fund of Knowledge: Adequate Attention and Concentration: Adequate Memory: Unremarkable Mood: Appropriate, Good Affect: Appropriate, Euthymic Thought Process & Associations: Intact, Logical, Goal directed, Linear Thought Content: Appropriate Hallucination Type: None Delusion Type: None Suicidal Ideation: No Suicidal Plan: No Suicidal Intention: No Homicidal Ideation: No Homicidal Plan: No Homicidal Intention: No Insight: Fair Judgment: Adequate (fair at best) Results Labs Test 12/06/17 19:30 Urine Color YELLOW Urine Turbidity CLEAR Urine pH 7.5 Urine Specific [place] 1.027 Urine Protein 30 mg/dL Urine Glucose (UA) NEG mg/dL Urine Ketones NEG mg/dL Urine Occult Blood LARGE Urine Nitrite NEG Urine Bilirubin NEG Urine Urobilinogen 2.0 MG/DL Urine Leukocyte Esterase NEG Urine RBC 102 /hpf Urine WBC 1 /hpf Urine Squamous Epithelial Cells 6 /hpf Urine Mucus FEW /lpf Microscopic Urinalysis Comment CULT NOT INDICATED Date/Time Source Procedure Growth Status 12/03/17 21:22 Blood Peripheral Aerobic Blood Culture - Preliminary NO GROWTH IN 4 DAYS Resulted 12/03/17 21:22 Blood Peripheral Anaerobic Blood Culture - Preliminary NO GROWTH IN 4 DAYS Resulted Labs reviewed. Blood cultures no growth 4 days. Vitals/IOs Vital Signs Date Time Temp Pulse Resp B/P (MAP) Pulse Ox O2 Delivery O2 Flow Rate FiO2 12/07/17 06:00 98.1 65 16 117/56 (69) 96 Assessment & Plan Problem List: (1) Schizoaffective disorder, bipolar type ICD Codes: F25.0 - Schizoaffective disorder, bipolar type Assessment & Plan: Stabilized Assessment & Plan Patient remains psychiatrically stable. She continues to deny suicidal or homicidal ideation, and risk assessment for both suicide and violence continues to suggest lower imminent risk. There is no evidence of any self-care deficit, and the patient's level of function is adequate for outpatient care. She is requesting discharge today to daughter's house, and I have no basis to retain her on the unit over her objection. Daughter is now able to receive the patient into her home, and the counselor has confirmed the details. Discharge patient today with outpatient psychiatric follow-up. I have also recommended that the patient follow-up with primary care. Justification for Cont. Inpt. Discharge today. Request HC Surrog/Guard Advoc?: No Missael Mart MD Dec 07, 2017 13:05
== END 2017-12-07 15:35 | disposition home or self-care (01) | DRG 885 ==
LOC: MERGE 13:18 → H260 13:18 → UNDODISIN 12-07 13:25
PROVIDERS: ADMIT Psychiatry & Neurology Psychiatry; ATTEND Psychiatry & Neurology Psychiatry
DX: F25.0 Schizoaffective disorder, bipolar type (principal); R45.851 Suicidal ideations; I08.3 Combined rheumatic disorders of mitral, aortic and tricuspid valves; D50.9 Iron deficiency anemia, unspecified; K20.9 Esophagitis, unspecified; I25.10 Atherosclerotic heart disease of native coronary artery without angina pectoris; K64.4 Residual hemorrhoidal skin tags; K64.8 Other hemorrhoids; K29.70 Gastritis, unspecified, without bleeding; E03.9 Hypothyroidism, unspecified; K59.00 Constipation, unspecified; K21.9 Gastro-esophageal reflux disease without esophagitis; R30.0 Dysuria; F43.10 Post-traumatic stress disorder, unspecified; Z72.0 Tobacco use; Z79.01 Long term (current) use of anticoagulants; Z91.14 Patient's other noncompliance with medication regimen; Z95.3 Presence of xenogenic heart valve
CPT/HCPCS: 72100; 72220; 80048; 80164; 81001; 82140; 85025; 87040; 88305; 88312; 93308; J1650; J2794; Q0163